=== PATIENT | female | born 1935 | race Caucasian/White ===

== ENCOUNTER 2017-11-05 08:53 | Emergency (ER) | payer MEDICARE, OTHER ==
[2017-11-05] MEDS ORDERED: Tetan/Diph/Pertus SYR(Tdap)* 0.5 ML SYR(BOOSTRIX) use SYR IM ONE (09:20)
[2017-11-05 09:21] VITALS: BP 144/66
--- NOTE | 2017-11-05 09:28 | UC ---
Laceration HPI - HPI Summary HPI Summary: 82-year-old female presents with family from the [facility] with laceration injury to her left arm. This was sustained by her cat who was scared by workers doing construction in the hallway. Her tetanus is not up-to- date. Bleeding is controlled. No other injuries were sustained. Patient does have a history of dementia and history is furthered by her daughter. This laceration was sustained just prior to arrival this morning. 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 Pain Intensity: 0 - Allergies/Home Medications Allergies/Adverse Reactions: Allergies Allergy/AdvReac Type Severity Reaction Status Date / Time Sulfa (Sulfonamide Allergy Hives Verified 11/05/17 09:07 Antibiotics) Tetracyclines Allergy Unknown Verified 11/05/17 09:10 Reaction Details Home Medications: Home Medications Acetaminophen TAB* [Tylenol TAB*] 650 mg PO Q4H PRN 11/05/17 [History Confirmed 11/05/17] Aspirin 81 mg CHEW TAB* [Aspirin Low Dose TAB*] 81 mg PO 0811/05/17 [History Confirmed 11/05/17] Bismuth Subsalicylate [Bismatrol] 15 ml PO Q4H PRN 11/05/17 [History Confirmed 11/05/17] Cholecalciferol (Vitamin D3) [Vitamin D3] 2,000 unit PO 0811/05/17 [History Confirmed 11/05/17] Mag Hydrox/Aluminum Hyd/Simeth [Antacid Maximum Strength Liq] 15 ml PO Q4H PRN 11/05/17 [History Confirmed 11/05/17] Magnesium Hydroxide LIQ* [Milk of Magnesia LIQ*] 30 ml PO DAILY PRN 11/05/17 [ History Confirmed 11/05/17] Memantine TAB* [Namenda TAB*] 10 mg PO 799,199911/05/17 [History Confirmed ] Minerin Cream* [Minerin*] 1 applic .SEE ORDER 79911/05/17 [History Confirmed 11/05/17] Multivitamins/Minerals TAB* [Theragran/minerals TAB*] 1 [place] [address]/05/17 [ History Confirmed 11/05/17] Tiotropium CAP.INH* [Spiriva CAP.INH*] 1 cap.inh INH 0800 11/05/17 [History Confirmed 11/05/17] guaiFENesin LIQ* [Robitussin*] 10 ml PO Q4H PRN 11/05/17 [History Confirmed ] PMH/Surg Hx/FS Hx/Imm Hx Previously Healthy: No - COPD, dementia Respiratory History: COPD Psychological History: Other - Dementia with behavioral disturbance Other Psychological History: advanced dementia with behavioral disturbance - Surgical History Surgical History: Unable to Obtain/Confirm - Social History Alcohol Use: None Substance Use Type: None Smoking Status (MU): Heavy Every Day Tobacco Smoker Type: Cigarettes Amount Used/How Often: 1/2 PPD Length of Time of Smoking/Using Tobacco: Since Age 16 - Immunization History Most Recent Tetanus Shot: "She's going to be needing one." Review of Systems Constitutional: Negative Skin: Other - Cat scratch laceration Motor: Negative Neurovascular: Negative Musculoskeletal: Negative All Other Systems Reviewed And Are Negative: Yes Physical Exam Triage Information Reviewed: Yes Appearance: Well-Appearing, No Pain Distress, Well-Nourished Vital Signs: Initial Vital Signs Temp 98.4 F 11/05/17 09:06 Pulse 80 11/05/17 09:06 Resp 18 11/05/17 09:06 BP 144/66 11/05/17 09:06 Pulse Ox 98 11/05/17 09:06 Vital Signs Reviewed: Yes ENT Exam: Normal Neck: Positive: Supple Respiratory: Positive: No respiratory distress, Other: - Diminished breath sounds without wheezing Cardiovascular: Positive: RRR Musculoskeletal: Positive: Strength Intact, ROM Intact, No Edema Neurological: Positive: Alert, Other: - Oriented to place and person Psychological: Positive: Normal Response To Family Skin Exam: Other - 2.5 cm laceration extending into the subcutaneous fat in the mid dorsal left forearm. Laceration is clean appearing with controlled bleeding and a linear appearance. Laceration Repair - Laceration Repair 1 Procedure Summary: Cat scratch laceration irrigated extensively with soap and water under the sink. It was dried and repaired with 3 Steri-Strips secured with Mastisol. Bacitracin was placed overlying. Gauze dressing. No sutures were placed. Description: Linear Laceration Size After Repair: Length (cm) - 2.5, Width (mm) - 2 Closure Material: SteriStrips Closure Method: Single Layer Laceration Course/Dx - Course/Dx Course Of Treatment: High risk skin tear/laceration due to cat scratch. Short course of Augmentin. Tetanus updated here. Wound repaired with Steri-Strips loosely. - Differential Dx - Laceration/Wound Provider Diagnoses: Cat scratch injury. Left forearm laceration Discharge - Sign-Out/Discharge Documenting (check all that apply): Patient Departure - Discharge Plan Condition: Improved Disposition: HOME Prescriptions: Amoxicillin/Clavulanate TAB* [Augmentin TAB 875*] 875 mg PO BID #10 tab Patient Education Materials: Cat Scratch Disease (ED), Laceration Without Closure (ED) Referrals: No Primary Care Phys,NOPCP [Primary Care Provider] - Additional Instructions: 1. Dress with bacitracin ointment twice daily. 2. Use a nonocclusive dressing such as gauze overlying the wound. Do not remove Steri-Strips. 3. Return with concern for infection, worse, and fever, new symptoms or other concerns. 4. Follow-up with the physician covering the assisted living center. - Billing Disposition and Condition Condition: IMPROVED Disposition: Home
== END 2017-11-05 09:29 | disposition home or self-care (01) ==
LOC: UCCORT 08:53
DX: S51.812A Laceration without foreign body of left forearm, initial encounter (principal); W55.03XA Scratched by cat, initial encounter; Y93.9 Activity, unspecified; Y92.009 Unspecified place in unspecified non-institutional (private) residence as the place of occurrence of the external cause; Z23 Encounter for immunization; J44.9 Chronic obstructive pulmonary disease, unspecified; F03.91 Unspecified dementia, unspecified severity, with behavioral disturbance; Z88.1 Allergy status to other antibiotic agents; F17.210 Nicotine dependence, cigarettes, uncomplicated
CPT/HCPCS: 90471; 90715; 99212; G0463